=== PATIENT | male | born 1970 | race Hispanic/Latino ===

== ENCOUNTER 2023-12-03 06:08 | Day surgery (SDC) | payer BC ==
[2023-12-01 10:31] LABS: Absolute Eosinophils 0.1 K/uL (0-0.5); Absolute Lymphocytes (CBC) 1.6 K/uL (0.7-4.9); Absolute Monocytes 0.4 K/uL (0.1-1.3); Absolute Neutrophil 3.5 K/uL (1.8-8.0); Basophils % 0.5 % (0-1.3); Eosinophils % 1.7 % (0-4.4); Lymphocytes % 28.4 % (15.3-44.8); MCH 31.5 pg (27.0-35.0); MCHC 33.5 g/dL (32.0-36.0); MCV 94.2 fL (80-100); MPV 8.9 fL (7.6-11.3); Monocytes % 7.5 % (3.3-12.3); Neutrophils % 61.9 % (41.7-73.7); Platelets 181 thou/uL (152-406); RBC Red Blood Cell Count 5.09 M/uL (4.33-5.43); Red Cell Distribution Width 12.4 % (12.1-15.2)
[2023-12-01 10:41] LABS: PT Prothrombin Time 10.7 SECONDS (9.4-12.5); PTT, Activated Partial Thromb 36.1 SECONDS (24.3-36.9); Protime INR 0.95
[2023-12-01 10:44] LABS: Anion Gap 6.3 mEq/L (5.0-15.0); Potassium 4.3 mEq/L (3.5-5.1)
[2023-12-03] MEDS ORDERED: Ringers Lactate 1,000 ML IV ONE ×2 (06:16→09:04)
[2023-12-03] MEDS ORDERED: CEFAZOLIN SODIUM 1 GM/VIAL ONE (06:16)
[2023-12-03] MEDS ORDERED: dexAMETHasone 10 MG/ML VIAL ONE ×2 (06:31→07:42)
[2023-12-03] MEDS ORDERED: LIDOCAINE 1% MPF 5 ML VIAL ONE (06:31)
[2023-12-03] MEDS ORDERED: FENTANYL CITR 100 MCG/2 ML ONE (06:32)
[2023-12-03] MEDS ORDERED: MIDAZOLAM HCL 2 MG/2 ML INJ ONE ×2 (06:32→07:43)
[2023-12-03] MEDS ORDERED: EPINEPHRINE 1 MG/ML VIAL ONE ×2 (06:32→07:21)
[2023-12-03] MEDS ORDERED: KETOROLAC 30 MG/ML INJ ONE (07:42)
[2023-12-03] MEDS ORDERED: ONDANSETRON 4 MG/2 ML VIAL ONE (07:42)
[2023-12-03] MEDS ORDERED: LIDOCAINE 2% MPF 5 ML VIAL ONE (07:42)
[2023-12-03] MEDS ORDERED: ROCURONIUM 50 MG/5 ML VIAL IV ONE (07:43)
[2023-12-03] MEDS ORDERED: propofoL 200 MG/20 ML VIAL IV ONE (07:43)
[2023-12-03] MEDS ORDERED: Phenylephrine HCl 10 MG/ML 1 ML VIAL ONE (08:30)
[2023-12-03] MEDS ORDERED: NS 0.9% VIAL 10 ML ONE ×2 (08:31→09:09)
[2023-12-03] MEDS ORDERED: SUGAMMADEX SODIUM 200 MG/2 ML VIAL IV ONE (09:23)
--- NOTE | 2023-12-03 09:43 | P.BOP ---
Preoperative diagnosis: left shoulder loose body with humeral head chondral defect Postoperative diagnosis: same, left shoulder SLAP tear Primary procedure: left shoulder arthroscopic removal of loose body Secondary procedure: left shoulder arthroscopic labral debridement Other procedure(s): left shoulder arthroscopic microfracture of the humeral head Flexible Babysitter: NONE,NONE Estimated blood loss: 5 cc Specimen: none Findings: see dictation Anesthesia: General Complications: None Implants: none Fluids & blood products: per anesthesia record Transferred to: Recovery Room Condition: Good
[2023-12-03 10:07] VITALS: O2SAT 100
--- NOTE | 2023-12-03 10:38 | RAD REPORT ---
EXAM DESCRIPTION: RAD - Shoulder 1 View - 12/03/2023 10:23 am CLINICAL HISTORY: S/P L ARTHROSCOPIC REMOVAL OF LOOSE BODY,MICRO FX COMPARISON: No comparisons FINDINGS: Mild glenohumeral and AC joint degenerative changes. No fracture, dislocation or unexpecte d postoperative finding.
[2023-12-03 11:15] VITALS: BP 123/78; TEMP 97
== END 2023-12-03 10:56 | disposition home or self-care (01) ==
LOC: OR 06:08
PROVIDERS: ATTEND Orthopaedic Surgery Sports Medicine
PROC: 0RCK4ZZ Extirpation of Matter from Left Shoulder Joint, Percutaneous Endoscopic Approach (ICD-10-PCS; principal; 2023-12-03 08:00)
DX: S43.432A Superior glenoid labrum lesion of left shoulder, initial encounter (principal); M25.012 Hemarthrosis, left shoulder; M94.9 Disorder of cartilage, unspecified; M24.012 Loose body in left shoulder; M89.8X2 Other specified disorders of bone, upper arm
CPT/HCPCS: 29819; 29822; 85025; 80048; 36415; 85610; 85730; 73020; 29999; A4216 ×2; J2704; J2001 ×2; J2371; J2250 ×2; J3010; J1100 ×2; J0171 ×2; J2405; J7120 ×2; J0690